=== PATIENT | female | born 1960 | race Caucasian/White ===

== ENCOUNTER 2017-11-08 21:05 | Inpatient (IN) | payer OTHER ==
[2017-11-08] MEDS ORDERED: DOCUSATE SODIUM 100 MG CAP PO (23:30)
[2017-11-08] MEDS ORDERED: ONDANSETRON 4 MG INJ IV (23:30)
[2017-11-08] MEDS ORDERED: NACL 0.9% 3 ML SYG IV (23:30)
[2017-11-08] MEDS ORDERED: BISACODYL (EC) 5 MG TAB PO (23:30)
[2017-11-08 23:33] LABS: ADD MAN DIFF? NO
[2017-11-08 23:35] LABS: BASOPHIL # 0.1 10^3/ul (0.0-0.1); BASOPHILS % 0.6 % (0.0-2.0); EOSINOPHILS # 0.2 10^3/ul (0.0-0.5); EOSINOPHILS % 2.2 % (0.0-7.0); HEMATOCRIT 37.2 % (37.0-47.0); HEMOGLOBIN 12.2 g/dl (12.0-16.0); LYMPHOCYTES # 1.8 10^3/ul (0.8-2.9); LYMPHOCYTES % 21.7 % (15.0-51.0); MEAN CORPUSCULAR HEMOGLOBIN 28.4 pg (29.0-33.0); MEAN CORPUSCULAR HGB CONC 32.8 g/dl (32.0-37.0); MEAN CORPUSCULAR VOLUME 86.5 fl (82.0-101.0); MONOCYTE # 0.7 10^3/ul (0.3-0.9); MONOCYTES % 8.8 % (0.0-11.0); NEUTROPHIL # 5.4 10^3/ul (1.6-7.5); NEUTROPHILS % 66.2 % (39.0-77.0); PLATELET COUNT 206 10^3/UL (140-415)
[2017-11-08 23:35] LABS: WHITE BLOOD COUNT 8.1 10^3/ul (4.8-10.8)
[2017-11-08 23:51] LABS: HEMOGLOBIN A1C 5.5 % (0-5.9)
[2017-11-09 00:03] LABS: ALANINE AMINOTRANSFERASE 27 IU/L (13-69); ALBUMIN 3.7 g/dl (3.3-4.9); ALBUMIN/GLOBULIN RATIO 1.19; ALKALINE PHOSPHATASE 100 IU/L (42-121); ANION GAP 10 (8-16); ASPARTATE AMINO TRANSFERASE 22 IU/L (15-46); BILIRUBIN,INDIRECT 0.4 mg/dl (0-1.1); BILIRUBIN,TOTAL 0.4 mg/dl (0.2-1.3); BLOOD UREA NITROGEN 10 mg/dl (7-20); CALCIUM 9.1 mg/dl (8.4-10.2); CARBON DIOXIDE 29 mmol/L (21-31); CHLORIDE 107 mmol/L (97-110); CHOL/HDL RATIO 3.3 RATIO; CHOLESTEROL 146 mg/dl (100-200); CREATINE KINASE 47 IU/L (23-200); CREATININE 0.71 mg/dl (0.44-1.00); GLUCOSE 102 mg/dl (70-220); HDL CHOLESTEROL 43 mg/dl (37-92); LDL CHOLESTEROL,CALCULATED 74 mg/dl; POTASSIUM 4.2 mmol/L (3.5-5.1); SODIUM 142 mmol/L (135-144); TOTAL PROTEIN 6.8 g/dl (6.1-8.1); TRIGLYCERIDES 144 mg/dl (0-149)
[2017-11-09] MEDS ORDERED: KETOROLAC 30 MG INJ IV (00:06)
[2017-11-09 00:14] LABS: CK INDEX 0.5; CK-MB < 0.22 ng/ml (0.0-2.4); TROPONIN-I < 0.010 ng/ml (0.000-0.120)
[2017-11-09] MEDS: morphine 2 MG INJ IV (01:25)
[2017-11-09 07:28] LABS: ADD MAN DIFF? NO
[2017-11-09 07:33] LABS: WHITE BLOOD COUNT 6.8 10^3/ul (4.8-10.8)
[2017-11-09 07:33] LABS: BASOPHILS % 0.4 % (0.0-2.0); EOSINOPHILS # 0.2 10^3/ul (0.0-0.5); EOSINOPHILS % 2.4 % (0.0-7.0); HEMATOCRIT 37.2 % (37.0-47.0); LYMPHOCYTES # 1.3 10^3/ul (0.8-2.9); LYMPHOCYTES % 19.3 % (15.0-51.0); MEAN CORPUSCULAR HEMOGLOBIN 28.3 pg (29.0-33.0); MEAN CORPUSCULAR HGB CONC 32.3 g/dl (32.0-37.0); MEAN CORPUSCULAR VOLUME 87.7 fl (82.0-101.0); MEAN PLATELET VOLUME 10.7 fl (7.4-10.4); MONOCYTE # 0.5 10^3/ul (0.3-0.9); MONOCYTES % 7.9 % (0.0-11.0); NEUTROPHIL # 4.7 10^3/ul (1.6-7.5); NEUTROPHILS % 69.4 % (39.0-77.0); PLATELET COUNT 190 10^3/UL (140-415); RED BLOOD COUNT 4.24 10^6/ul (4.20-5.40)
[2017-11-09 07:48] LABS: CREATINE KINASE 50 IU/L (23-200)
[2017-11-09 07:52] LABS: ALANINE AMINOTRANSFERASE 24 IU/L (13-69); ALBUMIN 3.5 g/dl (3.3-4.9); ALBUMIN/GLOBULIN RATIO 1.12; ALKALINE PHOSPHATASE 84 IU/L (42-121); ANION GAP 11 (8-16); ASPARTATE AMINO TRANSFERASE 20 IU/L (15-46); BILIRUBIN,INDIRECT 0.4 mg/dl (0-1.1); BILIRUBIN,TOTAL 0.4 mg/dl (0.2-1.3); BLOOD UREA NITROGEN 11 mg/dl (7-20); CALCIUM 9.2 mg/dl (8.4-10.2); CARBON DIOXIDE 28 mmol/L (21-31); CHLORIDE 104 mmol/L (97-110); CREATININE 0.66 mg/dl (0.44-1.00); GLUCOSE 96 mg/dl (70-220); POTASSIUM 4.2 mmol/L (3.5-5.1); SODIUM 139 mmol/L (135-144); TOTAL PROTEIN 6.6 g/dl (6.1-8.1)
[2017-11-09 08:01] LABS: CK INDEX 0.4; CK-MB < 0.22 ng/ml (0.0-2.4); TROPONIN-I < 0.010 ng/ml (0.000-0.120)
[2017-11-09] MEDS: ACETAMINOPHEN 325 MG TAB PO (09:57)
[2017-11-09] MEDS: ASPIRIN 81 MG TAB PO (09:57)
[2017-11-09] MEDS: ATORVASTATIN 80 MG TAB PO (20:36)
[2017-11-10 07:01] LABS: FREE THYROXINE INDEX (Calc) 2.33 ug/ml (0.65-3.89); T3 UPTAKE 32.3 % (23.5-40.5); T4 (THYROXINE) 7.2 ug/dl (5.5-11.0)
[2017-11-10] MEDS: ASPIRIN 81 MG TAB PO (08:41)
[2017-11-10] MEDS: CALCIUM/VITAMIN D (500/200) TAB PO (12:37)
[2017-11-10] MEDS ORDERED: morphine LIQ (10 MG/5 ML) CUP PO (16:30)
== END 2017-11-10 16:40 | disposition home health service (06) | DRG 69 ==
LOC: TEL 21:05
PROC: B030ZZZ Magnetic Resonance Imaging (MRI) of Brain (ICD-10-PCS; principal; 2017-11-09)
DX: G45.9 Transient cerebral ischemic attack, unspecified (principal); R41.82 Altered mental status, unspecified; R29.810 Facial weakness; Z79.82 Long term (current) use of aspirin
CPT/HCPCS: 70544; 70548; 70551; 72100; 73030; 73520; 80053; 80061; 82550; 82553; 83036; 84436; 84443; 84479; 84484; 85025; 92610; 93306; 97161; 97165

== ENCOUNTER 2018-06-30 12:21 | Emergency (ER) | payer OTHER ==
[2018-06-30 12:41] LABS: ADD MAN DIFF? NO
[2018-06-30 13:06] LABS: WHITE BLOOD COUNT 7.2 10^3/ul (4.8-10.8)
[2018-06-30 13:06] LABS: BASOPHILS % 0.6 % (0.0-2.0); EOSINOPHILS # 0.1 10^3/ul (0.0-0.5); EOSINOPHILS % 1.2 % (0.0-7.0); HEMOGLOBIN 12.3 g/dl (12.0-16.0); LYMPHOCYTES # 1.7 10^3/ul (0.8-2.9); LYMPHOCYTES % 23.1 % (15.0-51.0); MEAN CORPUSCULAR HEMOGLOBIN 27.8 pg (29.0-33.0); MEAN CORPUSCULAR HGB CONC 32.4 g/dl (32.0-37.0); MEAN CORPUSCULAR VOLUME 85.8 fl (82.0-101.0); MEAN PLATELET VOLUME 11.6 fl (7.4-10.4); MONOCYTE # 0.5 10^3/ul (0.3-0.9); MONOCYTES % 6.4 % (0.0-11.0); NEUTROPHIL # 4.9 10^3/ul (1.6-7.5); NEUTROPHILS % 68.3 % (39.0-77.0); PLATELET COUNT 182 10^3/UL (140-415); RED BLOOD COUNT 4.43 10^6/ul (4.20-5.40); RED CELL DISTRIBUTION WIDTH 12.8 % (11.5-14.5)
[2018-06-30 13:10] LABS: ANION GAP 7 (5-13); BLOOD UREA NITROGEN 16 mg/dl (7-20); CALCIUM 9.8 mg/dl (8.4-10.2); CARBON DIOXIDE 28 mmol/L (21-31); CHLORIDE 104 mmol/L (97-110); CHOL/HDL RATIO 2.2 RATIO; CHOLESTEROL 117 mg/dl (100-200); CREATININE 0.62 mg/dl (0.44-1.00); Estimated GFR > 60 mL/min (>60); GLUCOSE 100 mg/dl (70-220); HDL CHOLESTEROL 53 mg/dl (35-98); LDL CHOLESTEROL,CALCULATED 54 mg/dl; POTASSIUM 4.1 mmol/L (3.5-5.1); SODIUM 139 mmol/L (135-144); TRIGLYCERIDES 52 mg/dl (0-149)
[2018-06-30 13:13] LABS: INR 0.95; PARTIAL THROMBOPLASTIN TIME 28.6 Sec (23.0-35.0); PROTIME 12.8 Sec (11.9-14.9)
[2018-06-30 13:18] LABS: HEMOGLOBIN A1C 5.3 % (0-5.9)
[2018-06-30 13:22] LABS: TROPONIN-I < 0.012 ng/ml (0.000-0.120)
[2018-06-30] MEDS: OLANZAPINE (ODT) 5 MG TAB ODT (13:25)
[2018-06-30] MEDS: ASPIRIN 325 MG TAB PO (13:25)
[2018-06-30 14:18] LABS: ACETAMINOPHEN < 10.0 ug/ml (10.0-30.0)
[2018-06-30 14:18] LABS: ETHANOL < 10.0 mg/dl (0-0); SALICYLATE < 1.0 mg/dl (5.0-30.0)
== END 2018-06-30 17:56 | disposition home or self-care (01) ==
LOC: E/R 12:21
DX: F29 Unspecified psychosis not due to a substance or known physiological condition (principal); G45.4 Transient global amnesia; R40.2142 Coma scale, eyes open, spontaneous, at arrival to emergency department; R40.2242 Coma scale, best verbal response, confused conversation, at arrival to emergency department; R40.2362 Coma scale, best motor response, obeys commands, at arrival to emergency department; Z79.82 Long term (current) use of aspirin
CPT/HCPCS: 36415; 70450; 71045; 80048; 80061; 80307; 83036; 84484; 85025; 85610; 85730; 93005; 99285-25